=== PATIENT | male | born 1970 | race Caucasian/White ===

== ENCOUNTER 2020-03-23 05:43 | Inpatient (IN) | payer MEDICAID, OTHER ==
[~2020-03-23] VITALS: Ht 185.4 cm; Wt 95.3 kg
[2020-03-23] MEDS ORDERED: LIDOCAINE HCL 1% 20ML VIAL (Pyxis) INJ INFIL ONE (07:00)
[2020-03-23] MEDS ORDERED: BUPIVACAINE HCL/PF 0.25% (2.5MG/ML) 10ML INFIL ONE (07:00)
[2020-03-23] MEDS ORDERED: MORPHINE SULFATE 4 MG/ML CPJ (NOT FOR IM USE) IV ONE ×2 (07:00→12:45)
[2020-03-23] MEDS ORDERED: ONDANSETRON HCL 4MG/2ML INJ IV ONE ×2 (07:00→12:45)
[2020-03-23] MEDS ORDERED: CLONIDINE 0.1MG TABLET PO PRN (12:00)
[2020-03-23] MEDS ORDERED: IPRATROPIUM/ALBUTEROL 0.5-3(2.5)MG/3ML NEB HHN PRN (12:00)
[2020-03-23] MEDS ORDERED: MAGNESIUM/ALUMINUM HYDROXIDE/SIMETHICONE 30ML UDC PO PRN (12:00)
[2020-03-23 12:57] LABS: BASOPHILS % 0.4 % (0.0-2.0); EOSINOPHILS % 0.1 % (0.0-5.0); HEMATOCRIT. 41.5 % (42.0-52.0); HEMOGLOBIN. 13.8 g/dL (14.0-18.0); LYMPHOCYTES % 10.6 % (20.0-50.0); MEAN CORPUSCULAR HEMOGLOBIN 30.7 pg (28.0-32.0); MEAN CORPUSCULAR VOLUME 92.1 fL (80.0-94.0); MEAN PLATELET VOLUME 6.9 fl (7.4-10.4); MONOCYTES % 9.4 % (2.0-8.0); NEUTROPHILS % 79.5 % (40.0-76.0); PLATELET 243 x1000/uL (130-400); RED CELL DISTRIBUTION WIDTH 13.9 % (11.6-14.6)
[2020-03-23 13:05] LABS: CHLORIDE 104 mEq/L (98-107)
[2020-03-23 16:40] VITALS: BP 132/88
[2020-03-23] MEDS: HYDROCODONE/ACETAMINOPHEN 5/325MG TABLET PO PRN (17:14)
[2020-03-23 17:26] VITALS: BP 132/88
[2020-03-23 20:00] VITALS: BP 125/88
[2020-03-24] VITALS: BP 133/86
[2020-03-24] MEDS: HYDROCODONE/ACETAMINOPHEN 5/325MG TABLET PO PRN (00:07)
[2020-03-24 04:00] VITALS: BP 132/86
[2020-03-24] MEDS: OMEPRAZOLE 20MG CAPSULE EXTENDED RELEASE PO SCH (06:40)
[2020-03-24 07:07] LABS: BASOPHILS % 0.4 % (0.0-2.0); HEMATOCRIT. 43.4 % (42.0-52.0); HEMOGLOBIN. 14.6 g/dL (14.0-18.0); LYMPHOCYTES % 14.7 % (20.0-50.0); MEAN CORPUSCULAR HEMOGLOBIN 31.1 pg (28.0-32.0); MEAN CORPUSCULAR VOLUME 92.3 fL (80.0-94.0); MEAN PLATELET VOLUME 7.2 fl (7.4-10.4); MONOCYTES % 12.7 % (2.0-8.0); NEUTROPHILS % 71.2 % (40.0-76.0); PLATELET 232 x1000/uL (130-400); RED BLOOD CELL COUNT 4.71 mill/uL (4.7-6.1); RED CELL DISTRIBUTION WIDTH 13.7 % (11.6-14.6)
[2020-03-24 07:26] LABS: CHLORIDE 102 mEq/L (98-107)
[2020-03-24 07:36] LABS: PHOSPHORUS 3.7 mg/dL (2.5-4.9)
[2020-03-24 08:00] VITALS: BP 125/86
[2020-03-24 12:00] VITALS: BP 133/91
[2020-03-24] MEDS ORDERED: LORAZEPAM 2MG/ML CPJ IV PRN (13:00)
[2020-03-24] MEDS: HALOPERIDOL LACTATE 5MG/ML VIAL IM PRN (13:12)
[2020-03-24 16:00] VITALS: BP 127/93
[2020-03-24] MEDS ORDERED: LORAZEPAM 2MG/ML CPJ IM PRN (17:00)
[2020-03-25 04:00] VITALS: BP 145/94
[2020-03-25] MEDS: OMEPRAZOLE 20MG CAPSULE EXTENDED RELEASE PO SCH (06:51)
[2020-03-25 08:00] VITALS: BP 139/87
[2020-03-25 11:02] LABS: BASOPHILS % 0.4 % (0.0-2.0); EOSINOPHILS % 0.3 % (0.0-5.0); HEMATOCRIT. 50.3 % (42.0-52.0); HEMOGLOBIN. 16.5 g/dL (14.0-18.0); LYMPHOCYTES % 9.7 % (20.0-50.0); MEAN CORPUSCULAR HEMOGLOBIN 30.7 pg (28.0-32.0); MEAN PLATELET VOLUME 7.5 fl (7.4-10.4); MONOCYTES % 12.1 % (2.0-8.0); NEUTROPHILS % 77.5 % (40.0-76.0); PLATELET 207 x1000/uL (130-400); RED BLOOD CELL COUNT 5.35 mill/uL (4.7-6.1); RED CELL DISTRIBUTION WIDTH 13.8 % (11.6-14.6)
[2020-03-25 12:00] VITALS: BP 135/90
[2020-03-25 12:54] LABS: CHLORIDE 104 mEq/L (98-107)
[2020-03-25 14:11] LABS: CLARITY URINE CLEAR (CLEAR); COLOR URINE YELLOW (YELLOW); KETONES URINE 1+ (NEGATIVE); LEUKOCYTE ESTERASE URINE NEGATIVE (NEGATIVE); NITRITE URINE NEGATIVE (NEGATIVE); OCCULT BLOOD URINE NEGATIVE (NEGATIVE); PH URINE 5.5 (4.5-8.0); PROTEIN URINE NEGATIVE (NEGATIVE); SPECIFIC GRAVITY URINE 1.016 (1.005-1.030)
[2020-03-25 14:43] LABS: *AMPHETAMINES SCREEN URINE PRESUMTIVE POSITIVE (NEGATIVE)
[2020-03-25 14:44] LABS: *BARBITURATES SCREEN URINE NEGATIVE (NEGATIVE); *BENZODIAZEPINES SCREEN URINE NEGATIVE (NEGATIVE); *COCAINE SCREEN URINE NEGATIVE (NEGATIVE); CANNABINOID URINE SCREEN NEGATIVE (NEGATIVE); METHADONE URINE SCREEN NEGATIVE (NEGATIVE); OPIATES URINE SCREEN NEGATIVE (NEGATIVE)
[2020-03-25 14:45] LABS: PHENCYCLIDINE URINE SCREEN NEGATIVE (NEGATIVE)
[2020-03-25 16:00] VITALS: BP 123/86
[2020-03-25 20:00] VITALS: BP 129/89
[2020-03-26] MEDS: HYDROCODONE/ACETAMINOPHEN 5/325MG TABLET PO PRN ×3 (01:24→18:59)
[2020-03-26] MEDS: ACETAMINOPHEN 325MG TABLET PO PRN (03:12)
[2020-03-26 03:21] VITALS: BP 129/89
[2020-03-26 08:00] VITALS: BP 120/86
[2020-03-26] MEDS: FAMOTIDINE 20MG TABLET PO SCH ×2 (09:11→21:09)
[2020-03-26 12:00] VITALS: BP 121/83
[2020-03-26 16:00] VITALS: BP 106/75
[2020-03-26 20:00] VITALS: BP 106/61
[2020-03-27] VITALS: BP 130/86
[2020-03-27] MEDS: HYDROCODONE/ACETAMINOPHEN 5/325MG TABLET PO PRN ×3 (03:58→17:03)
[2020-03-27 04:00] VITALS: BP 127/83
[2020-03-27 08:00] VITALS: BP 121/83
[2020-03-27] MEDS: NICOTINE 14MG PATCH TD SCH (08:44)
[2020-03-27] MEDS: FAMOTIDINE 20MG TABLET PO SCH ×2 (08:44→20:56)
[2020-03-27 12:00] VITALS: BP 122/69
[2020-03-27] MEDS: DOCUSATE SODIUM 250MG CAPSULE PO SCH (13:45)
[2020-03-27 16:00] VITALS: BP 119/72
[2020-03-27 20:00] VITALS: BP 121/76
[2020-03-28] VITALS: BP 122/85
[2020-03-28 04:00] VITALS: BP 113/86
[2020-03-28] MEDS: HYDROCODONE/ACETAMINOPHEN 5/325MG TABLET PO PRN ×2 (04:17→20:31)
[2020-03-28 08:00] VITALS: BP 132/86
[2020-03-28] MEDS: DOCUSATE SODIUM 250MG CAPSULE PO SCH (08:20)
[2020-03-28] MEDS: NICOTINE 14MG PATCH TD SCH (08:21)
[2020-03-28] MEDS: FAMOTIDINE 20MG TABLET PO SCH ×2 (08:21→20:32)
[2020-03-28 12:00] VITALS: BP 111/78
[2020-03-28] MEDS: HALOPERIDOL LACTATE 5MG/ML VIAL IM PRN ×2 (12:19→22:20)
[2020-03-28] MEDS ORDERED: VANCOMYCIN HCL 1 GM/VIAL ONE (14:36)
[2020-03-28] MEDS ORDERED: BUPIVACAINE HCL/EPINEPHRINE/PF 0.5%/0.0005 10ML ONE (14:36)
[2020-03-28] MEDS ORDERED: BACITRACIN 50,000 UNITS/VIAL ONE (14:36)
[2020-03-28] MEDS ORDERED: MIDAZOLAM HCL 2 MG/2 ML VIAL ONE (16:25)
[2020-03-28] MEDS ORDERED: PROPOFOL 200MG/20ML VIAL IV ONE (16:25)
[2020-03-28] MEDS ORDERED: FENTANYL CITRATE/PF 50MCG/ML 2ML VIAL ONE ×3 (16:25→17:50)
[2020-03-28] MEDS ORDERED: NEOSTIGMINE METHYLSULFATE 1MG/ML 10 ML VIAL ONE (16:25)
[2020-03-28] MEDS ORDERED: GLYCOPYRROLATE 0.2 MG/ML 2ML VIAL ONE (16:25)
[2020-03-28] MEDS ORDERED: ROCURONIUM BROMIDE 10MG/ML VIAL 5ML IV ONE ×2 (16:25→17:06)
[2020-03-28] MEDS ORDERED: SODIUM CHLORIDE 0.9% 10ML VIAL ONE (16:26)
[2020-03-28] MEDS ORDERED: PHENYLEPHRINE HCL 10 MG/ML 1ML (IV VIAL) IV ONE (16:26)
[2020-03-28] MEDS ORDERED: CEFAZOLIN SODIUM 1000MG/VIAL ONE (16:26)
[2020-03-28] MEDS ORDERED: METOCLOPRAMIDE HCL 10MG/2ML VIAL ONE (16:26)
[2020-03-28] MEDS ORDERED: EPHEDRINE SULFATE 50MG/ML VIAL ONE (16:26)
[2020-03-28] MEDS ORDERED: ONDANSETRON HCL 4MG/2ML INJ ONE (16:26)
[2020-03-28] MEDS ORDERED: SUCCINYLCHOLINE CHLORIDE 200MG/10ML IV ONE (16:26)
[2020-03-28] MEDS ORDERED: SODIUM CHLORIDE 0.9% 1,000 ML IV ONE (16:51)
[2020-03-28] MEDS ORDERED: ALBUMIN HUMAN 12.5GM/50ML (25%) IV ONE (16:56)
[2020-03-28] MEDS ORDERED: MORPHINE SULFATE 2 MG/ML CPJ (NOT FOR IM USE) IV PRN (17:00)
[2020-03-28] MEDS ORDERED: MEPERIDINE HCL/PF 25MG/ML CPJ IV PRN (17:00)
[2020-03-28] MEDS ORDERED: ONDANSETRON HCL 4MG/2ML INJ IV PRN (17:00)
[2020-03-28] MEDS ORDERED: HYDROMORPHONE HCL/PF 2MG/ML CPJ IV PRN (17:00)
[2020-03-28] MEDS ORDERED: CEFAZOLIN 1000MG PREMIX 50 ML IV SCH (17:30)
[2020-03-28] MEDS: HYDROMORPHONE HCL/PF 2MG/ML CPJ IV PRN (18:49)
[2020-03-28 20:00] VITALS: BP 140/89
[2020-03-28] MEDS: CEFAZOLIN 1000MG PREMIX 50 ML IV SCH (20:36)
[2020-03-29] VITALS: BP 127/63
[2020-03-29] MEDS: HYDROCODONE/ACETAMINOPHEN 5/325MG TABLET PO PRN ×3 (00:34→16:49)
[2020-03-29 04:00] VITALS: BP 135/75
[2020-03-29] MEDS: CEFAZOLIN 1000MG PREMIX 50 ML IV SCH ×3 (04:57→20:00)
[2020-03-29] MEDS: HYDROMORPHONE HCL/PF 2MG/ML CPJ IV PRN (06:14)
[2020-03-29 06:49] LABS: BASOPHILS % 0.6 % (0.0-2.0); EOSINOPHILS % 0.6 % (0.0-5.0); HEMATOCRIT. 38.4 % (42.0-52.0); HEMOGLOBIN. 13.1 g/dL (14.0-18.0); LYMPHOCYTES % 8.4 % (20.0-50.0); MEAN CORPUSCULAR HEMOGLOBIN 31.2 pg (28.0-32.0); MEAN CORPUSCULAR VOLUME 91.6 fL (80.0-94.0); MEAN PLATELET VOLUME 7.6 fl (7.4-10.4); MONOCYTES % 7.5 % (2.0-8.0); NEUTROPHILS % 82.9 % (40.0-76.0); PLATELET 283 x1000/uL (130-400); RED BLOOD CELL COUNT 4.19 mill/uL (4.7-6.1); RED CELL DISTRIBUTION WIDTH 13.2 % (11.6-14.6)
[2020-03-29 08:30] VITALS: BP 125/73
[2020-03-29] MEDS: DOCUSATE SODIUM 100MG CAPSULE PO PRN (09:16)
[2020-03-29] MEDS: FAMOTIDINE 20MG TABLET PO SCH ×2 (09:16→20:00)
[2020-03-29] MEDS: ENOXAPARIN 40MG/0.4ML SYR SUBCUT SCH (09:17)
[2020-03-29] MEDS: ACETAMINOPHEN 325MG TABLET PO PRN (09:17)
[2020-03-29] MEDS: NICOTINE 14MG PATCH TD SCH (09:17)
[2020-03-29] MEDS: DOCUSATE SODIUM 250MG CAPSULE PO SCH (09:21)
[2020-03-29] MEDS: HALOPERIDOL LACTATE 5MG/ML VIAL IM PRN ×2 (11:56→23:42)
[2020-03-29 12:17] VITALS: BP 127/83
[2020-03-29 16:29] VITALS: BP 113/75
[2020-03-29 20:00] VITALS: BP 122/74
[2020-03-30] VITALS: BP 125/74
[2020-03-30] MEDS ORDERED: LORAZEPAM 2MG/ML CPJ IM PRN ×2 (02:45→18:00)
[2020-03-30 04:00] VITALS: BP 137/72
[2020-03-30] MEDS: CEFAZOLIN 1000MG PREMIX 50 ML IV SCH ×3 (04:22→21:02)
[2020-03-30 06:17] LABS: HEMOGLOBIN. 10.9 g/dL (14.0-18.0); MEAN CORPUSCULAR HEMOGLOBIN 30.7 pg (28.0-32.0); MEAN PLATELET VOLUME 7.6 fl (7.4-10.4); PLATELET 279 x1000/uL (130-400); RED BLOOD CELL COUNT 3.55 mill/uL (4.7-6.1); RED CELL DISTRIBUTION WIDTH 13.2 % (11.6-14.6)
[2020-03-30 08:00] VITALS: BP 132/87
[2020-03-30] MEDS: ENOXAPARIN 40MG/0.4ML SYR SUBCUT SCH (09:13)
[2020-03-30] MEDS: NICOTINE 14MG PATCH TD SCH (09:13)
[2020-03-30] MEDS: DOCUSATE SODIUM 250MG CAPSULE PO SCH (09:13)
[2020-03-30] MEDS: HYDROCODONE/ACETAMINOPHEN 5/325MG TABLET PO PRN (09:14)
[2020-03-30 11:10] LABS: PLATELET ESTIMATE NORMAL
[2020-03-30 12:00] VITALS: BP 121/76
[2020-03-30 16:00] VITALS: BP 134/82
[2020-03-30 20:00] VITALS: BP 129/85
[2020-03-31] VITALS: BP 127/97
[2020-03-31] MEDS: CEFAZOLIN 1000MG PREMIX 50 ML IV SCH ×3 (03:05→20:00)
[2020-03-31 04:00] VITALS: BP 143/95
[2020-03-31 07:08] LABS: HEMATOCRIT. 29.8 % (42.0-52.0); HEMOGLOBIN. 10.2 g/dL (14.0-18.0); MEAN CORPUSCULAR VOLUME 90.3 fL (80.0-94.0); MEAN PLATELET VOLUME 7.5 fl (7.4-10.4); PLATELET 310 x1000/uL (130-400)
[2020-03-31 08:00] VITALS: BP 137/87
[2020-03-31] MEDS: DOCUSATE SODIUM 250MG CAPSULE PO SCH (09:00)
[2020-03-31 09:23] LABS: PLATELET ESTIMATE NORMAL
[2020-03-31] MEDS: ENOXAPARIN 40MG/0.4ML SYR SUBCUT SCH (10:13)
[2020-03-31] MEDS: DOCUSATE SODIUM 100MG CAPSULE PO PRN (10:13)
[2020-03-31] MEDS: NICOTINE 14MG PATCH TD SCH (10:14)
[2020-03-31 12:00] VITALS: BP 154/95
[2020-03-31] MEDS: HYDROCODONE/ACETAMINOPHEN 5/325MG TABLET PO PRN (13:09)
[2020-03-31 16:00] VITALS: BP 126/84
[2020-03-31 20:00] VITALS: BP 130/90
[2020-04-01] VITALS: BP 124/84
[2020-04-01 04:00] VITALS: BP 149/93
[2020-04-01] MEDS: CEFAZOLIN 1000MG PREMIX 50 ML IV SCH ×3 (04:55→21:00)
[2020-04-01 08:00] VITALS: BP 137/90
[2020-04-01] MEDS: DOCUSATE SODIUM 250MG CAPSULE PO SCH (08:59)
[2020-04-01] MEDS: NICOTINE 14MG PATCH TD SCH (09:00)
[2020-04-01] MEDS: ENOXAPARIN 40MG/0.4ML SYR SUBCUT SCH (09:01)
[2020-04-01] MEDS: HYDROMORPHONE HCL/PF 2MG/ML CPJ IV PRN (10:13)
[2020-04-01 12:00] VITALS: BP 118/80
[2020-04-01 16:00] VITALS: BP 116/86
[2020-04-01] MEDS: HYDROCODONE/ACETAMINOPHEN 5/325MG TABLET PO PRN (21:28)
[2020-04-02] VITALS: BP 119/75
[2020-04-02 05:10] VITALS: BP 113/71
[2020-04-02 08:00] VITALS: BP 129/81
[2020-04-02] MEDS: DOCUSATE SODIUM 250MG CAPSULE PO SCH (09:00)
[2020-04-02] MEDS: ENOXAPARIN 40MG/0.4ML SYR SUBCUT SCH (09:11)
[2020-04-02] MEDS: DOCUSATE SODIUM 100MG CAPSULE PO PRN (09:11)
[2020-04-02] MEDS: NICOTINE 14MG PATCH TD SCH (09:14)
[2020-04-02 12:00] VITALS: BP 119/74
== END 2020-04-02 11:55 | disposition left against medical advice (07) | DRG 301 ==
LOC: ER 05:43 → 6EST 10:26 → ENRESERV 15:17
PROVIDERS: ADMIT Internal Medicine; ATTEND Internal Medicine
PROC: 0SRR0JZ Replacement of Right Hip Joint, Femoral Surface with Synthetic Substitute, Open Approach (ICD-10-PCS; principal; 2020-03-28)
DX: S72.011A Unspecified intracapsular fracture of right femur, initial encounter for closed fracture (principal); D72.829 Elevated white blood cell count, unspecified; Z53.20 Procedure and treatment not carried out because of patient's decision for unspecified reasons; Z71.51 Drug abuse counseling and surveillance of drug abuser; Z53.29 Procedure and treatment not carried out because of patient's decision for other reasons; T43.625A Adverse effect of amphetamines, initial encounter; Y92.89 Other specified places as the place of occurrence of the external cause; X58.XXXA Exposure to other specified factors, initial encounter; Y93.89 Activity, other specified; Y99.8 Other external cause status; R71.0 Precipitous drop in hematocrit; R65.10 Systemic inflammatory response syndrome (SIRS) of non-infectious origin without acute organ dysfunction
CPT/HCPCS: 36415; 72170; 73502; 80048; 80053; 80305; 81003; 83735; 84100; 85025; 86850; 86900; 87635; 88305; 88311; 93970; 96374; 97116; 97162; 97166; 97530; 99285; C1776; J0171; J0330; J0690; J1170; J1630; J1650; J2060; J2250; J2270; J2370; J2405; J2704; J2710; J2765; J3010; J3370; J3490; P9047